=== PATIENT | female | born 1965 | race Two or more races ===

== ENCOUNTER 2025-05-12 09:14 | Outpatient (AMB) | payer BC, SELFPAY ==
[2025-05-12 09:34] VITALS: BP 109/70; PULSE 77; RESP 16; TEMP 36.4; O2SAT 96; BMI 29.5
--- NOTE | 2025-05-12 09:34 | PD.ORTHCLVIS ---
Vital signs 05/12/25 09:34 Height 1.65 m Height Method Measured Weight 80.456 kg Weight Measurement Method Standing Scale BMI 29.5 BP 109/70 Blood Pressure Source Automatic Cuff Blood Pressure Location Left Upper Arm Position Sitting Respiration 16 Pulse 77 Pulse Source Monitor Temp 97.6 F Temp Source Temporal Artery Scan Pulse Oximetry (%) 96 Oxygen Delivery Method Room Air Med/Allergies Allergies & Medications Allergies sunflower seed Allergy (Verified 05/12/25 09:35) Medication Reconciliation meloxicam 7.5 mg tablet 7.5 mg PO QDAY #45 tabs 05/12/25 [Rx] Exam Exam Patient is in no acute distress and is cooperative with the examination today. Breathing is nonlabored. Patient has a normal mood and affect. Bilateral extremities were evaluated and demonstrates sensation intact to light touch. Palpable pedal pulses are present. No significant edema is present. Bilateral hips were examined. The patient has no pain with log roll of the hips. Internal rotation to 30 degrees and external rotation to 30 degrees is painless. Negative FADIR. Right knee was examined today. The right knee is in reasonable alignment. Range of motion from 0-120 degrees. Knee is stable to varus and valgus as well as AP translation with <5mm. Patient has a negative McMurrays. There is no pain with patellofemoral compression and no crepitus noted. The knee is nontender to palpation. Left knee was examined today. The left knee is in varus alignment. Range of motion from 0-115 degrees. Knee is stable to varus and valgus as well as AP translation with <5mm. Patient has a negative McMurrays. There is no pain with patellofemoral compression and no crepitus noted. The knee is tender to palpation medially. Assessment and Plan Problem List (1) Arthritis of left knee: Status: Acute Plan: ASSESSMENT AND PLAN 1. Left knee pain: Experiencing left knee pain for the last 3 months, currently managed with ibuprofen. Recent imaging was completed at [facility] while lying down, but standing x-rays are needed for a more accurate assessment. No injections or physical therapy have been tried yet. The current condition does not necessitate surgical intervention. A prescription for appropriate medication has been sent to pharmacy. An x-ray of the left knee will be conducted today. If the pain worsens or she is not satisfied with the progress, injections will be considered. 2. Diabetes mellitus: Hemoglobin A1c is 7.1, indicating suboptimal control of diabetes. Follow-up: 06/2025 Office Procedures GNS Level of Care Nursing/Assessment Patient Status: Initial/New Patient Nursing Assessment/Reassesment: Medication Reconciliation, Update PMH in EMR and Vital Signs Coordination of Care: Complex Care and Chronic Disease 1-5, Education Complex Pt/Fam, Consent,records obtained, informed consent, Lab and Imaging orders, Results/Orders obtained and Staff clarify orders Special Needs: Language special needs New Patient Charge New Patient Point Assignment: 1109 New Patient Point Charge: COMPUTER FIELD TECHNICIAN Level 3 ([id number]) MA Intake Visit Data Collection New Patient or Established: New Patient (never been to [facility]) Reason for Visit:: CHRONIC LEFT KNEE PAIN Seen by Clinical Staff ONLY (RN/MA): No Eligibility Services Representative Required: Yes PCP or OBGYN visit in last 3 months: Yes Hx Now: No Do You Feel Safe at Home: Yes Authorities Contacted: N/A Questionairres Past Medical History Past Medical History Have you ever been diagnosed with any of the following: Endocrine Problems Diabetes Mellitus Type 2: Yes Subjective Visit Visit for: new patient and knee Immunization / Flu Flu Vaccine in the Last 12 Months: Yes Flu Vaccine Exclusion Criteria: Already Received History of Present Illness Chief complaint: CHRONIC LEFT KNEE Date of injury / onset of symptoms: 3 MONTHS AGO HISTORY OF PRESENT ILLNESS IYogi, have obtained verbal consent from the patient, to be recorded during this encounter which may include, but not limited to, medical history, examination, treatment plans, and relevant health information.? Patient was informed that recording will be read and reviewed by myself before inclusion in the medical chart. The patient is a 59-year-old female who presents today with left knee pain that she has been experiencing for the last 3 months. She is a diabetic and her hemoglobin A1c is 7.1. She reports persistent discomfort in her left knee, specifically localized to the posterior aspect. Despite this, she maintains her ability to ambulate independently without any significant issues. She has not had injections or physical therapy. Ibuprofen is currently helping. She is not on any medications at home. She has a history of diabetes. Her kidneys and stomach are okay. Personal History Occupation: HOUSEWIFE Red flag PMH: none BMI Counceling provided: Yes Pain Pain level (0-10): 2 Pain location: posterior Pain quality: aching Pain timing: increases with activity Associated signs & symptoms: weakness Ambulatory data Ambulatory device: none Treatments Number of previous injections: 0 Improvement with previous injections: No Number of Physical Therapy sessions: 0 Improvement with PT: No Improvement with NSAIDS: no Review of Systems Review of Systems: All systems negative unless otherwise noted in HPI.
--- NOTE | 2025-05-12 09:35 | XR_ITS ---
EXAMINATION: Bilateral AP knees single view Left knee PA lateral axial 3 views TECHNIQUE: Bilateral AP knees standing single view Left knee PA flexion standing, lateral left knee standing, axial left knee 3 views total 4 views Date and time: May 12, 2025, 0944 hours INDICATIONS: Left knee pain beginning 3 months ago. FINDINGS: Moderate osteopenia Moderate narrowing medial joint space right knee Moderate narrowing medial joint space left knee Moderate narrowing left patellofemoral joint No fractures IMPRESSION: Moderate narrowing medial joint spaces bilaterally Moderate narrowing left patellofemoral joint
== END 2025-05-12 09:38 | disposition home or self-care (01) ==
LOC: HODSRG 09:14
PROVIDERS: PCP Family Medicine; Referring Provider Family Medicine; Supervising Provider Orthopaedic Surgery Adult Reconstructive Orthopaedic Surgery; Visit Provider Orthopaedic Surgery Adult Reconstructive Orthopaedic Surgery
DX: M17.12 Unilateral primary osteoarthritis, left knee (principal); M25.562 Pain in left knee; E11.9 Type 2 diabetes mellitus without complications
CPT/HCPCS: 73564; 99203; G0463